=== PATIENT | male | born 1985 | race Caucasian/White ===

== ENCOUNTER 2022-06-15 10:16 | Emergency (ER) | payer BC ==
[2022-06-15] MEDS ORDERED: Sodium Chloride 0.9% 1,000 ML IV ONE ×2 (10:31→11:34)
[2022-06-15] MEDS ORDERED: Haloperidol Lactate 5 MG/ML SDV IM ONE (10:32)
[2022-06-15] MEDS ORDERED: LORazepam 2 MG/ML SDV IVPUSH ONE (10:32)
[2022-06-15] MEDS ORDERED: diphenhydrAMINE 50 MG/ML SDV IVPUSH ONE (10:33)
[2022-06-15] MEDS ORDERED: Thiamine 200 MG/2 ML MDV IVPUSH ONE (10:51)
[2022-06-15] MEDS ORDERED: Multivitamin Tab PO STA (10:51)
[2022-06-15] MEDS ORDERED: Folic Acid 1 MG Tab PO ONE (10:56)
[2022-06-15] MEDS ORDERED: cefTRIAXone 1 GM in Sodium Chloride 0.9% 50 ML IV ONE (11:32)
[2022-06-15 11:37] LABS: ACETAMINOPHEN <2.0 ug/mL; BLOOD UREA NITROGEN,BUN 9 mg/dL (7.0-18.0); CHLORIDE,CL 106 mmol/L (98-107); GLUCOSE RANDOM 98 mg/dL (74-106); POTASSIUM,K 4.4 mmol/L (3.5-5.1); SODIUM,NA 145 mmol/L (136-148)
[2022-06-15 11:41] LABS: CARBON DIOXIDE,CO2 25.9 mmol/L (21.0-32.0)
[2022-06-15 11:42] LABS: ESTIMATED GFR 89 mL/min (>60)
[2022-06-15] MEDS ORDERED: Magnesium Sulfate/Water 2 GM in Premix Bag 1 BAG IV ONE (13:00)
[2022-06-15 18:22] LABS: C. TRACHOMATIS BY PCR NOT DETECTED; N. GONORRHOEAE BY PCR NOT DETECTED
== END 2022-06-15 16:45 ==
LOC: MW.ED 10:16
DX: R41.82 Altered mental status, unspecified (principal); Z20.822 Contact with and (suspected) exposure to COVID-19
CPT/HCPCS: 36415; 62270; 70450; 80053; 80143; 80179; 80305; 80307; 81001; 82140; 82550; 82945; 83605; 83735; 84157; 84443; 85025; 87070; 87205; 87389; 87491; 87591; 87635; 89050; 93005; 96361; 96365; 96367; 96375; 99285; A9270; J0696; J1200; J1630; J2060; J3411; J3475; J7030; J7050; 93010; 99291; U0002

== ENCOUNTER 2024-03-13 09:55 | Emergency (ER) | payer BC ==
[2024-03-13] MEDS: Sodium Chloride 0.9% 1,000 ML IV ONE ×3 (10:43→13:04)
[2024-03-13] MEDS: LORazepam 2 MG/ML SDV IVPUSH ONE ×2 (10:43→13:04)
[2024-03-13 10:57] LABS: BASOPHILS ABSOLUTE AUTO 0.04 K/uL (0.00-0.20); BASOPHILS PERCENT AUTO 0.5 % (0.0-1.0); EOSINOPHILS ABSOLUTE AUTO 0.03 K/uL (0.00-0.45); EOSINOPHILS PERCENT AUTO 0.3 % (0.0-6.0); HEMATOCRIT 43.6 % (42.0-52.0); HEMOGLOBIN 15.2 g/dL (14.0-18.0); IMMATURE GRAN ABSOLUTE AUTO 0.05 K/uL (0.00-0.05); IMMATURE GRAN PERCENT AUTO 0.6 % (0.0-0.4); LYMPHOCYTES ABSOLUTE AUTO 0.66 K/uL (1.00-4.80); LYMPHOCYTES PERCENT AUTO 7.5 % (24.0-44.0); MEAN CORPUSCULAR HEMOGLOBIN 30.8 pg (28.0-32.0); MEAN CORPUSCULAR HGB CONC 34.9 g/dL (32.0-36.0); MEAN CORPUSCULAR VOLUME 88.4 fL (83.0-99.0); MEAN PLATELET VOLUME 12.9 fL (9.4-12.4); MONOCYTES ABSOLUTE AUTO 0.58 K/uL (0.00-0.80); MONOCYTES PERCENT AUTO 6.6 % (0.0-8.0); NEUTROPHILS ABSOLUTE AUTO 7.46 K/uL (1.80-7.70); NEUTROPHILS PERCENT AUTO 84.5 % (41.0-71.0); RED BLOOD CELL COUNT 4.93 M/uL (4.52-5.90); WHITE BLOOD CELL COUNT,WBC 8.82 K/uL (3.9-11.3)
[2024-03-13 11:28] LABS: A/G RATIO 1.2 (0.9-1.6); ALANINE AMINOTRANSFERASE,ALT 271 IU/L (14-63); ALBUMIN 4.1 g/dL (3.4-5.0); ALKALINE PHOSPHATASE 143 U/L (46-116); ASPARTATE AMNIOTRANSFERASE,AST 293 IU/L (15-37); BILIRUBIN TOTAL 4.4 mg/dL (0.2-1.0); BLOOD UREA NITROGEN,BUN 8 mg/dL (7.0-18.0); CALCIUM 9.6 mg/dL (8.5-10.1); CARBON DIOXIDE,CO2 28.5 mmol/L (21.0-32.0); CHLORIDE,CL 97 mmol/L (98-107); CREATININE 1.1 mg/dL (0.8-1.3); EST CRCL DRUG DOSING (CG) 107.76 mL/min; ESTIMATED GFR 88 mL/min (>60); ETHANOL BLOOD MEDICAL < 3.0 mg/dL; GLUCOSE RANDOM 129 mg/dL (74-106); MAGNESIUM 1.1 mg/dL (1.8-2.4); POTASSIUM,K 3.2 mmol/L (3.5-5.1); PROTEIN TOTAL,TP 7.4 g/dL (6.4-8.2); SODIUM,NA 136 mmol/L (136-148)
[2024-03-13 11:31] LABS: COLOR,URINE ORANGE; GLUCOSE,URINE NEGATIVE (NEGATIVE); KETONES,URINE 40 mg/dL (NEGATIVE); LEUKOCYTE ESTERASE,URINE TRACE (NEGATIVE); NITRITE,URINE POSITIVE (NEGATIVE); OCCULT BLOOD,URINE NEGATIVE (NEGATIVE); PROTEIN,URINE >=300 mg/dL (NEGATIVE)
[2024-03-13 11:34] LABS: APPEARANCE,URINE HAZY; BILIRUBIN,URINE LARGE (NEGATIVE)
[2024-03-13 11:38] LABS: RBC,URINE 0-2 (0-2/HPF)
[2024-03-13 11:39] LABS: BACTERIA,URINE FEW (NEGATIVE); EPITHELIAL CELLS,URINE FEW (NONE-FEW); WBC,URINE 0-4 (0-5/HPF)
[2024-03-13 11:41] LABS: AMPHETAMINES SCREEN, URINE NEGATIVE (CUTOFF=500); BARBITURATE SCREEN,URINE NEGATIVE (CUTOFF=200); BENZODIAZEPINES SCREEN,URINE NEGATIVE (CUTOFF=150); BUPRENORPHINE SCREEN,URINE NEGATIVE (CUTOFF=10); METHADONE SCREEN, URINE NEGATIVE (CUTOFF=200); METHAMPHETAMINES SCREEN, URINE NEGATIVE (CUTOFF=500); OXYCODONE SCREEN,URINE NEGATIVE (CUT0FF=100); PCP SCREEN,URINE NEGATIVE (CUTOFF=25); THC SCREEN,URINE 20 NG/ML NEGATIVE (CUTOFF=50)
[2024-03-13 11:53] LABS: PLATELET COUNT,PLT 90 K/uL (150-400)
[2024-03-13] MEDS: Magnesium Sulfate/Water Premix 2 GM in Premix Bag 1 BAG IV ONE (12:00)
[2024-03-13] MEDS: Potassium Chloride 20 MEQ Tab.ER PO ONE (12:00)
[2024-03-13] MEDS: Magnesium Sulfate/Water Premix 50 ML ONE (13:05)
== END 2024-03-13 14:11 | disposition home or self-care (01) ==
LOC: MW.ED 09:55
DX: N39.0 Urinary tract infection, site not specified (principal); I10 Essential (primary) hypertension; F10.10 Alcohol abuse, uncomplicated; K76.9 Liver disease, unspecified; R74.01 Elevation of levels of liver transaminase levels; Z75.8 Other problems related to medical facilities and other health care; Z87.891 Personal history of nicotine dependence
CPT/HCPCS: 36415; 76705; 80053; 80305; 80307; 81001; 83735; 85025; 87086; 96361; 96365; 96366; 96375; 96376; 99284; A9270; J2060; J3475; J7030; 99283